=== PATIENT | male | born 1970 | race Caucasian/White ===

== ENCOUNTER 2022-09-04 12:42 | Emergency (ER) | payer OTHER ==
[~2022-09-04] VITALS: Ht 167.6 cm; Wt 72.6 kg
[2022-09-04 12:57] VITALS: BP 125/80
[2022-09-04] MEDS ORDERED: KETOROLAC 30 MG/ML VIAL IM ONE (13:45)
--- NOTE | 2022-09-04 14:21 | NUR ---
ASSITED PT OUT OF CAR, ABLE TO PIVOT ON UNAFFECTED LEG
[2022-09-04] MEDS ORDERED: PRED20TA5 PO (14:30)
[2022-09-04] MEDS ORDERED: IBUP-2213 PO (14:30)
--- NOTE | 2022-09-04 15:11 | NUR ---
FIRST CONTACT. ASSISTED VIA W/C TO LOBBY. PT ELECTS TO AWAIT HIS S.O. EN ROUTE. VERBAL D/C GIVEN BY ERMAsif. PT AGREES W/ D/C PLAN. NO ADR. VIANEY PEGUERO.
[2022-09-04 15:13] VITALS: BP 120/76
== END 2022-09-04 15:13 | disposition home or self-care (01) ==
LOC: MED 12:42
DX: M10.062 Idiopathic gout, left knee (principal); E11.9 Type 2 diabetes mellitus without complications; I10 Essential (primary) hypertension; E78.5 Hyperlipidemia, unspecified; E78.00 Pure hypercholesterolemia, unspecified; Z79.899 Other long term (current) drug therapy; Z79.1 Long term (current) use of non-steroidal anti-inflammatories (NSAID)
CPT/HCPCS: 96372; 99284; J1885